=== PATIENT | male | born 1950 | race Caucasian/White ===

== ENCOUNTER 2018-04-24 07:00 | Day surgery (SDC) | payer MEDICARE ==
[~2018-04-24] VITALS: Ht 177.8 cm; Wt 81.0 kg
[~2018-04-24 07:00] MED LIST: ALBU90OI INH; ASPI81CH PO; B Complex #11 EACH PO; CENTRUM SILVER1 EAC4 PO; CHLO25 PO; CITA20 PO; DOXA4 PO; FINA5 PO; FURO20 PO; FURO40 PO; GABA100 PO; GABA300 PO; K-Dur20 MEQ PO; Lasix20 MG PO; Lopressor 50 mg50 MG PO; METO50 PO; OMEPRAZOLE MAGN20 MG PO; THIA100 PO
== END 2018-04-24 09:15 | disposition home or self-care (01) ==
LOC: ORSCSDS 07:00
PROVIDERS: Ophthalmology
PROC: 08RJ3JZ Replacement of Right Lens with Synthetic Substitute, Percutaneous Approach (ICD-10-PCS; principal; 2018-04-24 08:30)
DX: H25.11 Age-related nuclear cataract, right eye (principal); H21.81 Floppy iris syndrome; I10 Essential (primary) hypertension; Z86.73 Personal history of transient ischemic attack (TIA), and cerebral infarction without residual deficits; Z79.82 Long term (current) use of aspirin; Z79.899 Other long term (current) drug therapy; F17.210 Nicotine dependence, cigarettes, uncomplicated
CPT/HCPCS: J2250; J3301; J7040; V2632

== ENCOUNTER 2018-05-22 08:42 | Day surgery (SDC) | payer MEDICARE, OTHER ==
[~2018-05-22] VITALS: Ht 180.3 cm; Wt 82.0 kg
== END 2018-05-22 10:22 | disposition home or self-care (01) ==
LOC: ORSCSDS 08:42
PROVIDERS: Ophthalmology
PROC: 08RK3JZ Replacement of Left Lens with Synthetic Substitute, Percutaneous Approach (ICD-10-PCS; principal; 2018-05-22 10:00)
DX: H25.12 Age-related nuclear cataract, left eye (principal); H21.81 Floppy iris syndrome; I10 Essential (primary) hypertension; G40.89 Other seizures; F17.210 Nicotine dependence, cigarettes, uncomplicated; Z79.82 Long term (current) use of aspirin; Z79.899 Other long term (current) drug therapy
CPT/HCPCS: J2001; J2250; J3010; J3301; J7120; V2632

== ENCOUNTER 2020-02-10 11:16 | Emergency (ER) | payer OTHER ==
[~2020-02-10] VITALS: Ht 177.8 cm; Wt 77.1 kg
[2020-02-10 11:44] LABS: BASOPHILS ABSOLUTE AUTO 0.01 K/mm3 (0.00-0.23); BASOPHILS PERCENT AUTO 0 % (0-2); EOSINOPHILS ABSOLUTE AUTO 0.04 K/mm3 (0.00-0.68); EOSINOPHILS PERCENT AUTO 1 % (0-6); Hematocrit 39.7 % (37.0-53.0); IMMATURE GRAN ABSOLUTE AUTO 0.02 K/mm3 (0.00-0.10); IMMATURE GRAN PERCENT AUTO 1 % (0-1); LYMPHOCYTES ABSOLUTE AUTO 1.36 K/mm3 (0.84-5.20); LYMPHOCYTES PERCENT AUTO 34 % (21-46); MONOCYTES ABSOLUTE AUTO 0.56 K/mm3 (0.16-1.47); MONOCYTES PERCENT AUTO 14 % (4-13); Mean Corpuscular HGB 35.3 pg (26.0-34.0); Mean Corpuscular HGB Conc 35.3 g/dL (31.5-36.5); Mean Corpuscular Volume 100 fL (80-100); Mean Platelet Volume 9.7 fL (9.1-12.4); NEUTROPHILS ABSOLUTE AUTO 2.05 K/mm3 (1.96-9.15); NEUTROPHILS PERCENT AUTO 51 % (41-73); Platelet Count 171 K/mm3 (150-400); RDW Coefficient Variation 12.8 % (11.7-14.2); RDW Standard Deviation 47.8 fL (35.1-46.3); Red Blood Cell Count 3.97 M/mm3 (4.30-5.90); White Blood Cell Count 4.04 K/mm3 (4.00-11.30)
[2020-02-10 12:05] LABS: Alanine Aminotransfer (ALT/SGP 78 U/L (12-78); Albumin, Blood 3.2 g/dL (3.4-5.0); Albumin/Globulin Ratio 0.8 (0.8-1.8); Alk Phos 75 U/L (50-136); Anion Gap 12 mmol/L (6-16); Aspartate Aminotrans (AST/SGOT 73 U/L (12-37); Blood Urea Nitrogen 7 mg/dL (8-24); Bun/Creatinine Ratio 9.3 (12.0-20.0); CO2, Blood 24 mmol/L (21-32); Calcium, Blood 8.7 mg/dL (8.5-10.1); Chloride, Blood 88 mmol/L (98-108); Creatinine, Blood 0.75 mg/dL (0.60-1.20); Globulin, Blood 3.9 g/dL (2.2-4.0); Glomerular Filtration Rate >60 (60-); Glucose, Blood 94 mg/dL (70-99); Potassium, Blood 3.6 mmol/L (3.5-5.5); Sodium, Blood 124 mmol/L (136-145); Total Protein, Blood 7.1 g/dL (6.4-8.2); Troponin I <0.015 ng/mL (0.000-0.040)
== END 2020-02-10 14:00 | disposition home or self-care (01) ==
LOC: ER 11:16
PROVIDERS: Emergency Medicine
DX: R55 Syncope and collapse (principal); E87.1 Hypo-osmolality and hyponatremia; I10 Essential (primary) hypertension; F17.200 Nicotine dependence, unspecified, uncomplicated; Z88.0 Allergy status to penicillin; Z88.2 Allergy status to sulfonamides; Z91.048 Other nonmedicinal substance allergy status; Z79.899 Other long term (current) drug therapy; Z79.82 Long term (current) use of aspirin; Z86.73 Personal history of transient ischemic attack (TIA), and cerebral infarction without residual deficits
CPT/HCPCS: 36415; 71046; 80053; 84484; 85025; 93005; 93010; 96360; 99284-25; J7030

== ENCOUNTER 2020-08-11 23:19 | Emergency (ER) | payer OTHER ==
[~2020-08-11] VITALS: Ht 177.8 cm; Wt 67.6 kg
[~2020-08-11 23:19] MED LIST changes: +BENADRYL25 MG PO
[2020-08-11 23:54] LABS: BASOPHILS ABSOLUTE AUTO 0.02 K/mm3 (0.00-0.23); BASOPHILS PERCENT AUTO 1 % (0-2); EOSINOPHILS ABSOLUTE AUTO 0.02 K/mm3 (0.00-0.68); EOSINOPHILS PERCENT AUTO 1 % (0-6); Hematocrit 36.6 % (37.0-53.0); Hemoglobin 12.6 g/dL (13.5-17.5); IMMATURE GRAN ABSOLUTE AUTO 0.02 K/mm3 (0.00-0.10); IMMATURE GRAN PERCENT AUTO 1 % (0-1); LYMPHOCYTES ABSOLUTE AUTO 1.63 K/mm3 (0.84-5.20); LYMPHOCYTES PERCENT AUTO 40 % (21-46); MONOCYTES ABSOLUTE AUTO 0.57 K/mm3 (0.16-1.47); MONOCYTES PERCENT AUTO 14 % (4-13); Mean Corpuscular HGB 35.7 pg (26.0-34.0); Mean Corpuscular HGB Conc 34.4 g/dL (31.5-36.5); Mean Corpuscular Volume 104 fL (80-100); NEUTROPHILS ABSOLUTE AUTO 1.83 K/mm3 (1.96-9.15); NEUTROPHILS PERCENT AUTO 45 % (41-73); Platelet Count 172 K/mm3 (150-400); RDW Coefficient Variation 12.6 % (11.7-14.2); RDW Standard Deviation 48.3 fL (35.1-46.3); Red Blood Cell Count 3.53 M/mm3 (4.30-5.90); White Blood Cell Count 4.09 K/mm3 (4.00-11.30)
[2020-08-12 00:12] LABS: Alanine Aminotransfer (ALT/SGP 60 U/L (12-78); Albumin/Globulin Ratio 0.8 (0.8-1.8); Alk Phos 84 U/L (50-136); Anion Gap 7 mmol/L (6-16); Aspartate Aminotrans (AST/SGOT 92 U/L (12-37); Bilirubin, Total 0.4 mg/dL (0.1-1.0); Blood Urea Nitrogen 7 mg/dL (8-24); Bun/Creatinine Ratio 14.5 (12.0-20.0); CO2, Blood 28 mmol/L (21-32); Calcium, Blood 8.4 mg/dL (8.5-10.1); Chloride, Blood 96 mmol/L (98-108); Creatinine, Blood 0.48 mg/dL (0.60-1.20); Globulin, Blood 3.7 g/dL (2.2-4.0); Glomerular Filtration Rate >60 (60-); Glucose, Blood 83 mg/dL (70-99); Magnesium, Blood 1.8 mg/dL (1.6-2.4); Sodium, Blood 131 mmol/L (136-145); Total Protein, Blood 6.7 g/dL (6.4-8.2)
== END 2020-08-12 01:46 | disposition home or self-care (01) ==
LOC: ER 23:19
PROVIDERS: Emergency Medicine
DX: S00.31XA Abrasion of nose, initial encounter (principal); S00.81XA Abrasion of other part of head, initial encounter; I10 Essential (primary) hypertension; F17.210 Nicotine dependence, cigarettes, uncomplicated; Z86.73 Personal history of transient ischemic attack (TIA), and cerebral infarction without residual deficits; Z88.2 Allergy status to sulfonamides; Z88.0 Allergy status to penicillin; Z91.09 Other allergy status, other than to drugs and biological substances; Z23 Encounter for immunization; W01.10XA Fall on same level from slipping, tripping and stumbling with subsequent striking against unspecified object, initial encounter
CPT/HCPCS: 36415; 70450; 71045; 72125; 80053; 83735; 85025; 90471; 90714; 93005; 93010; 94640; 99285-25; A9270-GY

== ENCOUNTER 2020-09-21 18:58 | Emergency (ER) | payer OTHER ==
[~2020-09-21] VITALS: Ht 180.3 cm; Wt 72.6 kg
[2020-09-21 20:35] LABS: BASOPHILS ABSOLUTE AUTO 0.03 K/mm3 (0.00-0.23); BASOPHILS PERCENT AUTO 1 % (0-2); EOSINOPHILS ABSOLUTE AUTO 0.03 K/mm3 (0.00-0.68); EOSINOPHILS PERCENT AUTO 1 % (0-6); Hematocrit 37.7 % (37.0-53.0); Hemoglobin 12.9 g/dL (13.5-17.5); IMMATURE GRAN ABSOLUTE AUTO 0.04 K/mm3 (0.00-0.10); IMMATURE GRAN PERCENT AUTO 1 % (0-1); LYMPHOCYTES ABSOLUTE AUTO 1.22 K/mm3 (0.84-5.20); LYMPHOCYTES PERCENT AUTO 31 % (21-46); MONOCYTES PERCENT AUTO 15 % (4-13); Mean Corpuscular HGB 36.2 pg (26.0-34.0); Mean Corpuscular HGB Conc 34.2 g/dL (31.5-36.5); Mean Corpuscular Volume 106 fL (80-100); Mean Platelet Volume 8.9 fL (9.1-12.4); NEUTROPHILS ABSOLUTE AUTO 2.03 K/mm3 (1.96-9.15); NEUTROPHILS PERCENT AUTO 51 % (41-73); Platelet Count 186 K/mm3 (150-400); RDW Coefficient Variation 13.1 % (11.7-14.2); RDW Standard Deviation 51.7 fL (35.1-46.3); Red Blood Cell Count 3.56 M/mm3 (4.30-5.90); White Blood Cell Count 3.95 K/mm3 (4.00-11.30)
[2020-09-21 20:50] LABS: Alanine Aminotransfer (ALT/SGP 48 U/L (12-78); Albumin, Blood 3.1 g/dL (3.4-5.0); Albumin/Globulin Ratio 0.8 (0.8-1.8); Alk Phos 105 U/L (50-136); Anion Gap 8 mmol/L (6-16); Aspartate Aminotrans (AST/SGOT 63 U/L (12-37); Bilirubin, Total 0.3 mg/dL (0.1-1.0); Blood Urea Nitrogen 7 mg/dL (8-24); Bun/Creatinine Ratio 18.3 (12.0-20.0); CO2, Blood 30 mmol/L (21-32); Calcium, Blood 8.8 mg/dL (8.5-10.1); Chloride, Blood 95 mmol/L (98-108); Creatinine, Blood 0.38 mg/dL (0.60-1.20); Globulin, Blood 3.7 g/dL (2.2-4.0); Glomerular Filtration Rate >60 (60-); Glucose, Blood 83 mg/dL (70-99); Potassium, Blood 4.3 mmol/L (3.5-5.5); Sodium, Blood 133 mmol/L (136-145); Total Protein, Blood 6.8 g/dL (6.4-8.2)
[2020-09-21 20:52] LABS: Ethanol (Alcohol), Blood, Med 381 mg/dL
== END 2020-09-21 23:44 | disposition home or self-care (01) ==
LOC: ER 18:58
PROVIDERS: Student in an Organized Health Care Education/Training Program
DX: S05.10XA Contusion of eyeball and orbital tissues, unspecified eye, initial encounter (principal); F10.129 Alcohol abuse with intoxication, unspecified; Z88.0 Allergy status to penicillin; Z88.2 Allergy status to sulfonamides; Z91.09 Other allergy status, other than to drugs and biological substances; Z79.82 Long term (current) use of aspirin; Z79.899 Other long term (current) drug therapy; Z86.73 Personal history of transient ischemic attack (TIA), and cerebral infarction without residual deficits; I10 Essential (primary) hypertension; F17.210 Nicotine dependence, cigarettes, uncomplicated; W01.10XA Fall on same level from slipping, tripping and stumbling with subsequent striking against unspecified object, initial encounter; Y90.8 Blood alcohol level of 240 mg/100 ml or more
CPT/HCPCS: 70450; 71045; 80053; 85025; 93005; 93010; 99285-25; G0480

== ENCOUNTER → 2020-10-13 | Outpatient (CLI) | payer OTHER ==
[2020-10-13 10:11] LABS: Source, Urine Voided
[2020-10-13 13:27] LABS: Appearance, Urine Clear (Clear); Bilirubin, Urine Neg (Neg); Blood, Urine Neg (Neg); Color, Urine Yellow (P-Yellow); Glucose Qualitative, Urine Neg (Neg); Ketones, Urine Neg (Neg); Leukocyte Esterase, Urine Neg (Neg); Nitrite, Urine Neg (Neg); Protein, Urine Neg (Neg); Urobilinogen, Urine NORM (Normal); pH, Urine 6.5 (5.0-8.0)
== END | disposition home or self-care (01) ==
LOC: LAB SHORT 05:45 → LAB 05:45
PROVIDERS: Family Medicine
DX: E87.1 Hypo-osmolality and hyponatremia (principal); R74.8 Abnormal levels of other serum enzymes
CPT/HCPCS: 81003; 83935

== ENCOUNTER 2021-04-19 22:46 | Inpatient (IN) | payer OTHER, MEDICARE ==
[~2021-04-19] VITALS: Ht 180.3 cm; Wt 74.0 kg
[~2021-04-19 22:46] MED LIST changes: -B Complex #11 EACH PO; -CENTRUM SILVER1 EAC4 PO; +MULTIPLE VITAM1 EACH PO; +Vitamin B Comple1 EA PO
[2021-04-19 23:29] LABS: BASOPHILS ABSOLUTE AUTO 0.01 K/mm3 (0.00-0.23); BASOPHILS PERCENT AUTO 0 % (0-2); EOSINOPHILS ABSOLUTE AUTO 0.04 K/mm3 (0.00-0.68); EOSINOPHILS PERCENT AUTO 1 % (0-6); Hematocrit 30.9 % (37.0-53.0); Hemoglobin 11.4 g/dL (13.5-17.5); IMMATURE GRAN ABSOLUTE AUTO 0.02 K/mm3 (0.00-0.10); IMMATURE GRAN PERCENT AUTO 1 % (0-1); LYMPHOCYTES ABSOLUTE AUTO 1.04 K/mm3 (0.84-5.20); LYMPHOCYTES PERCENT AUTO 24 % (21-46); MONOCYTES ABSOLUTE AUTO 0.46 K/mm3 (0.16-1.47); MONOCYTES PERCENT AUTO 11 % (4-13); Mean Corpuscular HGB 35.1 pg (26.0-34.0); Mean Corpuscular HGB Conc 36.9 g/dL (31.5-36.5); Mean Corpuscular Volume 95 fL (80-100); Mean Platelet Volume 9.2 fL (9.1-12.4); NEUTROPHILS ABSOLUTE AUTO 2.78 K/mm3 (1.96-9.15); NEUTROPHILS PERCENT AUTO 64 % (41-73); Platelet Count 195 K/mm3 (150-400); RDW Coefficient Variation 11.9 % (11.7-14.2); RDW Standard Deviation 41.7 fL (35.1-46.3); Red Blood Cell Count 3.25 M/mm3 (4.30-5.90); White Blood Cell Count 4.35 K/mm3 (4.00-11.30)
[2021-04-19 23:40] LABS: Ethanol (Alcohol), Blood, Med 176 mg/dL; Magnesium, Blood 1.6 mg/dL (1.6-2.4)
[2021-04-19 23:42] LABS: Alanine Aminotransfer (ALT/SGP 42 U/L (12-78); Albumin, Blood 3.1 g/dL (3.4-5.0); Albumin/Globulin Ratio 0.9 (0.8-1.8); Alk Phos 81 U/L (50-136); Anion Gap 13 mmol/L (6-16); Aspartate Aminotrans (AST/SGOT 33 U/L (12-37); Bilirubin, Total 0.5 mg/dL (0.1-1.0); Blood Urea Nitrogen 7 mg/dL (8-24); Bun/Creatinine Ratio 11.6 (12.0-20.0); CO2, Blood 20 mmol/L (21-32); Calcium, Blood 8.7 mg/dL (8.5-10.1); Chloride, Blood 85 mmol/L (98-108); Globulin, Blood 3.4 g/dL (2.2-4.0); Glomerular Filtration Rate >60 (60-); Glucose, Blood 68 mg/dL (70-99); Potassium, Blood 5.1 mmol/L (3.5-5.5); Sodium, Blood 118 mmol/L (136-145); Total Protein, Blood 6.5 g/dL (6.4-8.2)
--- NOTE | 2021-04-20 04:29 | NUR ---
ADMISSION NOTE 70 YR OLD MALE ADMITTED TO FLOOR FROM THE ED WITH DX OF HYPONATREMIA, NA+ LEVEL OF 118. IVF OF NS INFUSING. ALERT AND ORIENTED X 4. VOICED HX OF ETOH. LAST DRINK WAS TODAY. NO NOTED TREMORS. ORIENTED TO USE OF CALL LIGHT. AGREED NOT TO GET OUT OF BED AND WOULD USE CALL LIGHT IF NEEDED.
[2021-04-20] MEDS ORDERED: METO50 PO (04:30)
[2021-04-20] MEDS ORDERED: TAMS.4ER PO (04:31)
[2021-04-20] MEDS ORDERED: B-1100 MG PO (04:31)
--- NOTE | 2021-04-20 04:36 | NUR ---
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 IVF INFUSING. CALL LIGHT NI REACH.
[2021-04-20 05:49] LABS: Alanine Aminotransfer (ALT/SGP 39 U/L (12-78); Albumin/Globulin Ratio 0.9 (0.8-1.8); Alk Phos 76 U/L (50-136); Anion Gap 11 mmol/L (6-16); Aspartate Aminotrans (AST/SGOT 36 U/L (12-37); Bilirubin, Direct 0.3 mg/dL (0.0-0.3); Bilirubin, Indirect 0.3 mg/dL (0.1-0.7); Bilirubin, Total 0.6 mg/dL (0.1-1.0); Blood Urea Nitrogen 6 mg/dL (8-24); Bun/Creatinine Ratio 11.3 (12.0-20.0); CO2, Blood 22 mmol/L (21-32); Calcium, Blood 8.9 mg/dL (8.5-10.1); Chloride, Blood 90 mmol/L (98-108); Creatinine, Blood 0.53 mg/dL (0.60-1.20); Globulin, Blood 3.2 g/dL (2.2-4.0); Glomerular Filtration Rate >60 (60-); Glucose, Blood 57 mg/dL (70-99); Potassium, Blood 4.5 mmol/L (3.5-5.5); Sodium, Blood 123 mmol/L (136-145); Total Protein, Blood 6.2 g/dL (6.4-8.2)
[2021-04-20 08:52] LABS: Percent Saturation 52.7 % (20.0-50.0)
[2021-04-20 09:24] LABS: Thyroid Stimulating Hormone 3.37 uIU/mL (0.360-4.800)
[2021-04-20 11:26] LABS: Adenovirus Not Detected (NOT DETECT); Coronavirus 229E Not Detected (NOT DETECT); Coronavirus HKU1 Not Detected (NOT DETECT); Coronavirus NL63 Not Detected (NOT DETECT); Coronavirus OC43 Not Detected (NOT DETECT); Human Metapneumovirus Not Detected (NOT DETECT); Human Rhinovirus/Enterovirus Not Detected (NOT DETECT); SARS-Cov-2 (COVID-19), BioFire Not Detected (NOT DETECT)
[2021-04-20 11:27] LABS: Bordetella pertussis Not Detected (NOT DETECT); Chlamydophila pneumoniae Not Detected (NOT DETECT); Influenza A/2009-H1 Not Detected (NOT DETECT); Influenza A/H1 Not Detected (NOT DETECT); Influenza A/H3 Not Detected (NOT DETECT); Influenza B Not Detected (NOT DETECT); Mycoplasma pneumoniae Not Detected (NOT DETECT); Parainfluenza Virus 1 Not Detected (NOT DETECT); Parainfluenza Virus 2 Not Detected (NOT DETECT); Parainfluenza Virus 3 Not Detected (NOT DETECT); Parainfluenza Virus 4 Not Detected (NOT DETECT); Respiratory Syncytial Virus Not Detected (NOT DETECT)
[2021-04-20 14:30] LABS: Anion Gap 7 mmol/L (6-16); Blood Urea Nitrogen 8 mg/dL (8-24); Bun/Creatinine Ratio 12.4 (12.0-20.0); CO2, Blood 25 mmol/L (21-32); Chloride, Blood 95 mmol/L (98-108); Creatinine, Blood 0.64 mg/dL (0.60-1.20); Glomerular Filtration Rate >60 (60-); Glucose, Blood 98 mg/dL (70-99); Potassium, Blood 4.7 mmol/L (3.5-5.5); Sodium, Blood 127 mmol/L (136-145)
--- NOTE | 2021-04-20 18:16 | NUR ---
SHIFT SUMMARY PT A/O X4. HX OF ETOH BUT CIWAS HAVE BEEN NEGATIVE. PT WORKED WITH PHYSICAL THERAPY AND IS VERY WEAK. HE WAS UNABLE TO STAND BUT REPORTS THAT HE IS ABLE TO WALK AT HOME USING A WALKER. HOWEVER, HE ALSO REPORTS THAT HE FALLS OFTEN. INCONT AND REQUESTED TO HAVE A CONDOM CATH. SKIN ON BUTTOCKS AND GROIN IS RED. VSS. WILL REPORT TO ONCOMING RN.
[2021-04-20 20:27] LABS: Anion Gap 8 mmol/L (6-16); Blood Urea Nitrogen 9 mg/dL (8-24); Bun/Creatinine Ratio 12.3 (12.0-20.0); CO2, Blood 26 mmol/L (21-32); Calcium, Blood 8.7 mg/dL (8.5-10.1); Chloride, Blood 94 mmol/L (98-108); Creatinine, Blood 0.73 mg/dL (0.60-1.20); Glomerular Filtration Rate >60 (60-); Glucose, Blood 125 mg/dL (70-99); Potassium, Blood 4.5 mmol/L (3.5-5.5); Sodium, Blood 128 mmol/L (136-145)
--- NOTE | 2021-04-21 00:14 | NUR ---
CIWA 8, 20MG LIBRIUM GIVEN PO, NICOTINE PATCH REPLACED D/T PRIOR PATCH HAD FALLEN OFF. PT APPEARS LESS AGITATED. CALL LT IN REACH.
--- NOTE | 2021-04-21 03:00 | NUR ---
PT COMFORTABLE AT THIS TIME. NO NEEDS. CALL LT IN REACH.
--- NOTE | 2021-04-21 04:01 | NUR ---
SHIFT SUMMARY: A/O. STATES NEEDS APPROPRIATELY. ON RA. SR 96 ON TELE. INCONTINENT OF BOWEL AND URINE. HX OF ETOH, CIWA 8, LIBRIUM 20MG PO GIVEN. PT WAS ABLE TO RELAX SOME, LESS AGITATED. REPLACED NICOTINE PATCH THAT HAD FALLEN OFF DURING DAYSHIFT. NO ACUTE CHANGES. WILL CONTINUE TO PROVIDE CARE UNTIL SHIFT REPORT.
--- NOTE | 2021-04-21 04:53 | NUR ---
CONDOM CATH PLACED PER PT REQUEST.
[2021-04-21 06:10] LABS: BASOPHILS ABSOLUTE AUTO 0.01 K/mm3 (0.00-0.23); BASOPHILS PERCENT AUTO 0 % (0-2); EOSINOPHILS ABSOLUTE AUTO 0.07 K/mm3 (0.00-0.68); EOSINOPHILS PERCENT AUTO 2 % (0-6); Hematocrit 32.6 % (37.0-53.0); Hemoglobin 11.6 g/dL (13.5-17.5); IMMATURE GRAN ABSOLUTE AUTO 0.02 K/mm3 (0.00-0.10); IMMATURE GRAN PERCENT AUTO 1 % (0-1); LYMPHOCYTES ABSOLUTE AUTO 0.62 K/mm3 (0.84-5.20); LYMPHOCYTES PERCENT AUTO 15 % (21-46); MONOCYTES ABSOLUTE AUTO 0.45 K/mm3 (0.16-1.47); MONOCYTES PERCENT AUTO 11 % (4-13); Mean Corpuscular HGB 34.7 pg (26.0-34.0); Mean Corpuscular HGB Conc 35.6 g/dL (31.5-36.5); Mean Corpuscular Volume 98 fL (80-100); Mean Platelet Volume 9.9 fL (9.1-12.4); NEUTROPHILS ABSOLUTE AUTO 2.86 K/mm3 (1.96-9.15); NEUTROPHILS PERCENT AUTO 71 % (41-73); Platelet Count 192 K/mm3 (150-400); RDW Coefficient Variation 12.4 % (11.7-14.2); RDW Standard Deviation 44.9 fL (35.1-46.3); Red Blood Cell Count 3.34 M/mm3 (4.30-5.90); White Blood Cell Count 4.03 K/mm3 (4.00-11.30)
[2021-04-21 06:30] LABS: Albumin, Blood 2.8 g/dL (3.4-5.0); Anion Gap 7 mmol/L (6-16); Blood Urea Nitrogen 7 mg/dL (8-24); Bun/Creatinine Ratio 11.3 (12.0-20.0); CO2, Blood 26 mmol/L (21-32); Calcium, Blood 8.7 mg/dL (8.5-10.1); Chloride, Blood 95 mmol/L (98-108); Creatinine, Blood 0.62 mg/dL (0.60-1.20); Glomerular Filtration Rate >60 (60-); Glucose, Blood 88 mg/dL (70-99); Phosphorus, Blood 2.8 mg/dL (2.5-4.9); Sodium, Blood 128 mmol/L (136-145)
[2021-04-21 08:24] LABS: Anion Gap 7 mmol/L (6-16); Blood Urea Nitrogen 6 mg/dL (8-24); Bun/Creatinine Ratio 10.8 (12.0-20.0); CO2, Blood 27 mmol/L (21-32); Calcium, Blood 9.1 mg/dL (8.5-10.1); Chloride, Blood 95 mmol/L (98-108); Creatinine, Blood 0.56 mg/dL (0.60-1.20); Glomerular Filtration Rate >60 (60-); Glucose, Blood 92 mg/dL (70-99); Sodium, Blood 129 mmol/L (136-145)
[2021-04-21 13:01] LABS: Anion Gap 7 mmol/L (6-16); Blood Urea Nitrogen 11 mg/dL (8-24); Bun/Creatinine Ratio 22.9 (12.0-20.0); CO2, Blood 27 mmol/L (21-32); Calcium, Blood 9.2 mg/dL (8.5-10.1); Chloride, Blood 96 mmol/L (98-108); Creatinine, Blood 0.48 mg/dL (0.60-1.20); Glomerular Filtration Rate >60 (60-); Glucose, Blood 119 mg/dL (70-99); Potassium, Blood 4.2 mmol/L (3.5-5.5); Sodium, Blood 130 mmol/L (136-145)
--- NOTE | 2021-04-21 14:30 | NUR ---
AWARE 3 DIARRHEAS. IMODUIM CHANGED TO Q4 HR PRN AND IV BOLUS FOR 1000ML.
--- NOTE | 2021-04-21 14:53 | NUR ---
ORTHOSTATIC LYING 114/65-117. SITTING 91/58-127. NOTIFIED. CONTINUE WITH BOLUS THEN D5NS AT 125
--- NOTE | 2021-04-21 18:02 | NUR ---
ALERT. ORIENTED. ORTHOSTATIC W/ AWARE. HAD BOLUS AND NOW FLUID GOING INAT 125ML/HR. BUTTOCK EXCORIATED. USING CALAZINE TO AREA. PATIENT UNABLE TO STAND FOR P.T. ALSO ORTHOSTATIC. POOR APPETITE. TELE ON. WCTM
[2021-04-21 20:28] LABS: C DIFFICILE DNA NEGATIVE (Negative)
--- NOTE | 2021-04-22 01:48 | NUR ---
REPORT GIVEN TO SHERWIN JACOBSON. PATIENT IS ALERT AND ORIENTED. HE IS ABLE TO MAKE HIS NEEDS KNOWN. HE USES HIS CALL LIGHT FREQUENTLY. MEDICATED WITH LIBRIUM 20MG PER ORDERS, CIWA 7. PATIENT HAS NOT RESTED MUCH THIS SHIFT. HE STATES THAT HE WOULD LIKE TO GO HOME SOON POSSIBLE. BED LOW AND LOCKED, CALL LIGHT WITHIN REACH. BED ALARM SET.
--- NOTE | 2021-04-22 01:59 | NUR ---
ASSUMED CARE OF PT FROM KAVON GAGE. PT LYING IN BED WATCHING TV. RESP E/U ON RA. CALL LT IN REACH.
--- NOTE | 2021-04-22 04:30 | NUR ---
SHIFT SUMMARY: A/O. STATES NEEDS APPROPRIATELY. RESP E/U ON RA. MULTIPLE SCATTERED SCABS ON BLE FROM CRAWLING ON THE FLOOR OF HIS HOME AFTER A FALL. SINUS AT 72 ON TELE. HX ETOH, CIWA 7. GIVEN 20MG LIBRIUM EARLIER FOR SEVERE AGITATION. ON CONT IVF. NEG FOR C-DIFF. PLAN FOR SNF OR HOME WITH HH. WILL CONTINUE TO PROVIDE CARE UNTIL SHIFT REPORT.
[2021-04-22 06:11] LABS: Albumin, Blood 2.3 g/dL (3.4-5.0); Anion Gap 4 mmol/L (6-16); Blood Urea Nitrogen 10 mg/dL (8-24); Bun/Creatinine Ratio 20.7 (12.0-20.0); CO2, Blood 27 mmol/L (21-32); Calcium, Blood 8.3 mg/dL (8.5-10.1); Chloride, Blood 105 mmol/L (98-108); Creatinine, Blood 0.48 mg/dL (0.60-1.20); Glomerular Filtration Rate >60 (60-); Glucose, Blood 99 mg/dL (70-99); Magnesium, Blood 1.5 mg/dL (1.6-2.4); Phosphorus, Blood 1.1 mg/dL (2.5-4.9); Potassium, Blood 3.7 mmol/L (3.5-5.5); Sodium, Blood 136 mmol/L (136-145)
--- NOTE | 2021-04-22 17:44 | NUR ---
PT WITH ONE SOFT STOOL THIS AM, PT REQUIRED 2 PERSON ASSIST TO AND FROM BSC. PT IS ALERT, IRRATIONAL AT TIMES, PT STS THAT HE PLANS TO LEAVE BEFORE SUNDAY DESPITE PLANNED TRANSFER TO SNF PERHAPS ON SUNDAY. PT IS WELL EDUCATED BAOUT WHY HE WAS NOT D/C TODAY, THAT HE IS NOT STRONG ENOUGH TO PROVIDE HIS OWN CARE AND THAT HE HAD A POSITIVE ORTHO BP, PT STS "I CAN'T DO IT THAT LONG" PER'S REPORTED CAREGIVERS WERE UNABLE TO BE REACHED TODAY DESPITE NUMEROUS CALLS FROM CARE MANAGEMENT
--- NOTE | 2021-04-23 05:25 | NUR ---
SHIFT SUMMARY- PT. AWAKE MOST OF THE NIGHT. SLEEP AID GIVEN PER PT. REQUEST WITH MINIMAL EFFECT. ON BEDREST LAST NIGHT, HAD NO COMPLAINTS OF PAIN OR DISCOMFORT T/O THE NIGHT. CONDOM CATH CHANGED MULTIPLE TIMES DURING THE NIGHT, PT. VOIDS FREQUENT AND LARGE AMOUNTS. CIWA SCORE OF 4, VSS. CALL LIGHT WITHIN REACH AND SIDE RAILS UPX2. WILL CONT TO MONITOR.
--- NOTE | 2021-04-23 18:03 | NUR ---
SHIFT SUMMARY PT A&O PLEASENT AND COOPERATIVE. OOB WITH 1 ASSIST. PT SAT EOB FOR MEALS. NO COMPLIANTS THIS SHIFT. PT WAS ORTHOSTATIC WITH AM ORTHO BP CHECK. NO ACUTE CHANGES THIS SHIFT. PLAN: CHECK ORHTO VS TOMORROW, POSSIBLE DISCHARGE HOME IF STABLE.
[2021-04-24 05:39] LABS: Albumin, Blood 2.2 g/dL (3.4-5.0); Anion Gap 5 mmol/L (6-16); Blood Urea Nitrogen 8 mg/dL (8-24); Bun/Creatinine Ratio 17.9 (12.0-20.0); CO2, Blood 30 mmol/L (21-32); Calcium, Blood 7.5 mg/dL (8.5-10.1); Chloride, Blood 102 mmol/L (98-108); Creatinine, Blood 0.45 mg/dL (0.60-1.20); Glomerular Filtration Rate >60 (60-); Glucose, Blood 89 mg/dL (70-99); Magnesium, Blood 1.2 mg/dL (1.6-2.4); Phosphorus, Blood 1.4 mg/dL (2.5-4.9); Sodium, Blood 137 mmol/L (136-145)
--- NOTE | 2021-04-24 05:43 | NUR ---
Quiet night, slept off and on, requests door kept open and lights on all night.
--- NOTE | 2021-04-24 18:41 | NUR ---
SHIFT SUMMARY PT A&0X3. UP SBA WITH FWW TO [facility] A COUPLE OF TIMES TODAY. PT REMAINS HYPOTENSIVE WITH ORTHOSTATIC VS THIS AM. NO C/0 THIS SHIFT. NO ACUTE CHANGES. PTS FRIEND JHON CAME INTO VISIT TODAY WITH CONCERNS ABOUT PT GOING HOME ALONE, ALSO THAT HIS HOUSE IS IN VERY POOR REPAIR. AFTER TALKING WITH PT AND JHON PT IS AGREEABLE TO POSSIBLE SNF PLACEMENT. SPOKE WITH DR JENKINS- [facility] CONSULT ORDERED. ENCOURAGED PT TO SET SMALL GOALS TO HELP IMPROVE STRENGTH AND ACTIVITY LEVEL EACH DAY.
--- NOTE | 2021-04-25 06:10 | NUR ---
SHIFT SUMMARY: PT IS ALERT AND ORIENTED. PT IS CALM AND COOPERATIVE WITH CARE. PT CALL APPROPRIATELY. PT IS A ONE ASSIST WITH FWW. PT REPORTS NAUSEA, GAVE PRN ZOFRAN. PT DENIES PAIN, VOMITING, AND SOB. PT'S IV LEAKING, REFUSED ANOTHER TO BE STARTED HE BELIEVES HE IS GOING HOME TODAY. PT SLEPT INTERMITTENTLY THROUGHOUT THE NIGHT. NO ACUTE CHANGES OR COMPLICATIONS THIS SHIFT. WILL CONTINUE TO MONITOR.
[2021-04-25] MEDS ORDERED: FLUDROCORTISON0.1 M1 PO (12:44)
== END 2021-04-25 15:50 | disposition home health service (06) | DRG 640 ==
LOC: ER 22:46 → MEDS 04-20 01:48
PROVIDERS: Emergency Medicine; Family Medicine; Internal Medicine; ADMIT Internal Medicine
DX: E87.1 Hypo-osmolality and hyponatremia (principal); J96.01 Acute respiratory failure with hypoxia; E44.0 Moderate protein-calorie malnutrition; I95.1 Orthostatic hypotension; Z66 Do not resuscitate; E87.6 Hypokalemia; E83.39 Other disorders of phosphorus metabolism; F17.210 Nicotine dependence, cigarettes, uncomplicated; J44.9 Chronic obstructive pulmonary disease, unspecified; Z86.73 Personal history of transient ischemic attack (TIA), and cerebral infarction without residual deficits; N40.0 Benign prostatic hyperplasia without lower urinary tract symptoms; I10 Essential (primary) hypertension; Z90.49 Acquired absence of other specified parts of digestive tract; Z98.890 Other specified postprocedural states; Z88.2 Allergy status to sulfonamides; Z88.0 Allergy status to penicillin; Z88.8 Allergy status to other drugs, medicaments and biological substances; Z79.82 Long term (current) use of aspirin; Z79.899 Other long term (current) drug therapy; E83.42 Hypomagnesemia; Z68.22 Body mass index [BMI] 22.0-22.9, adult; F10.229 Alcohol dependence with intoxication, unspecified
CPT/HCPCS: 0202U; 36415; 71046; 80048; 80053; 80069; 80076; 82607; 82728; 82746; 83540; 83550; 83735; 84443; 85025; 87493; 91303; 93005; 93010; 94762; 97110; 97116; 97162; 97530; 99285-25; A9270; G0480; J1650; J2405; J3475; J7030; J7042; J7060

== ENCOUNTER 2021-05-04 15:30 | Emergency (ER) | payer OTHER ==
[~2021-05-04] VITALS: Ht 177.8 cm; Wt 68.0 kg
[~2021-05-04 15:30] MED LIST changes: +B-1100 MG PO; +FLUDROCORTISON0.1 M1 PO; +TAMS.4ER PO
[2021-05-04 16:20] LABS: Hematocrit 30.6 % (37.0-53.0); Hemoglobin 10.5 g/dL (13.5-17.5); Mean Corpuscular HGB 34.2 pg (26.0-34.0); Mean Corpuscular HGB Conc 34.3 g/dL (31.5-36.5); Mean Corpuscular Volume 100 fL (80-100); Mean Platelet Volume 9.5 fL (9.1-12.4); Platelet Count 316 K/mm3 (150-400); RDW Standard Deviation 47.3 fL (35.1-46.3); Red Blood Cell Count 3.07 M/mm3 (4.30-5.90); White Blood Cell Count 3.45 K/mm3 (4.00-11.30)
[2021-05-04 16:51] LABS: BAND PERCENT MAN 1 % (0-8); BASOPHILS PERCENT MAN 0 % (0-2); EOSINOPHILS ABSOLUTE MAN 0.03 K/mm3 (0.00-0.68); EOSINOPHILS PERCENT MAN 1 % (0-6); LYMPHOCYTES % ATYPICAL MANUAL 2 % (0-0); LYMPHOCYTES ABSOLUTE MAN 0.86 K/mm3 (0.84-5.20); LYMPHOCYTES PERCENT MAN 23 % (21-46); MONOCYTES ABSOLUTE MAN 0.31 K/mm3 (0.16-1.47); MONOCYTES PERCENT MAN 9 % (4-13); NEUTROPHILS ABSOLUTE MAN 2.24 K/mm3 (1.96-9.15); SEG NEUTROPHILS PERCENT MAN 64 % (41-73); TOTAL CELLS COUNTED 100
[2021-05-04 16:52] LABS: Alanine Aminotransfer (ALT/SGP 28 U/L (12-78); Albumin, Blood 2.3 g/dL (3.4-5.0); Albumin/Globulin Ratio 0.6 (0.8-1.8); Alk Phos 48 U/L (50-136); Anion Gap 6 mmol/L (6-16); Aspartate Aminotrans (AST/SGOT 26 U/L (12-37); Bilirubin, Total 0.4 mg/dL (0.1-1.0); Blood Urea Nitrogen 13 mg/dL (8-24); Bun/Creatinine Ratio 25.5 (12.0-20.0); CO2, Blood 36 mmol/L (21-32); Calcium, Blood 8.9 mg/dL (8.5-10.1); Chloride, Blood 95 mmol/L (98-108); Creatinine, Blood 0.51 mg/dL (0.60-1.20); Glomerular Filtration Rate >60 (60-); Glucose, Blood 122 mg/dL (70-99); Potassium, Blood 2.9 mmol/L (3.5-5.5); Sodium, Blood 137 mmol/L (136-145); Total Protein, Blood 6.3 g/dL (6.4-8.2)
[2021-05-04 16:59] LABS: Magnesium, Blood 1.3 mg/dL (1.6-2.4)
[2021-05-04] MEDS ORDERED: FUROSEMIDE20 MG PO (17:37)
[2021-05-04] MEDS ORDERED: Ventolin/Prove6.7 GM INH (17:37)
[2021-05-04] MEDS ORDERED: TAMSULOSIN HCL0.4 M1 PO (17:38)
[2021-05-04] MEDS ORDERED: MAGNESIUM OXID500 MG PO (17:40)
== END 2021-05-04 20:29 | disposition home or self-care (01) ==
LOC: ER 15:30
PROVIDERS: Physician Assistant
DX: U07.1 COVID-19 (principal); E87.6 Hypokalemia; E83.42 Hypomagnesemia; I10 Essential (primary) hypertension; F17.210 Nicotine dependence, cigarettes, uncomplicated; Z88.0 Allergy status to penicillin; Z88.2 Allergy status to sulfonamides; Z91.048 Other nonmedicinal substance allergy status; Z79.899 Other long term (current) drug therapy; Z86.73 Personal history of transient ischemic attack (TIA), and cerebral infarction without residual deficits
CPT/HCPCS: 36415; 71046; 80053; 83690; 83735; 83880; 84100; 84484; 85025; 93005; 93010; 99284-25; A9270

== ENCOUNTER → 2021-10-17 | Outpatient (CLI) | payer OTHER ==
[~2021-10-17] MED LIST changes: +FUROSEMIDE20 MG PO; +MAGNESIUM OXID500 MG PO; +TAMSULOSIN HCL0.4 M1 PO; +Ventolin/Prove6.7 GM INH
== END | disposition home or self-care (01) ==
LOC: LAB SHORT 07:57
DX: B35.1 Tinea unguium (principal)
CPT/HCPCS: 88305; 88312

== ENCOUNTER → 2023-07-11 | Outpatient (CLI) | payer OTHER | LOC: LAB 12:41 → LAB SHORT 12:41 | DX: L60.2 Onychogryphosis (principal) | CPT/HCPCS: 88305; 88312 ==

== ENCOUNTER 2023-10-11 07:00 | Day surgery (SDC) | payer OTHER ==
[~2023-10-11] VITALS: Ht 177.8 cm; Wt 68.0 kg
[2023-10-11] MEDS ORDERED: ATOR80 PO (07:20)
[2023-10-11] MEDS ORDERED: IBUP200 PO (07:21)
[2023-10-11] MEDS ORDERED: Neurontin300 MG PO (07:21)
[2023-10-11] MEDS ORDERED: METO50ER PO (07:24)
[2023-10-11 07:27] VITALS: BP 144/80
[2023-10-11 07:45] VITALS: BP 139/75
[2023-10-11] MEDS ORDERED: NS 500 ML IV ONE (08:10)
[2023-10-11] MEDS ORDERED: NS 1,000 ML IV ONE ×2 (08:11→08:17)
[2023-10-11] MEDS ORDERED: Nitroglycerin 2 MG/20 ML BTL ONE (08:11)
[2023-10-11] MEDS ORDERED: Heparin Sodium 1000 Units/ML 10ML MDV ONE (08:11)
[2023-10-11] MEDS ORDERED: Midazolam HCl 1MG / ML 2ML Vial ONE ×2 (08:16→09:11)
[2023-10-11] MEDS ORDERED: FentaNYL Citrate 50 MCG/ML 2 ML Injection ONE ×2 (08:17→09:11)
[2023-10-11] MEDS ORDERED: Verapamil HCL 2.5 MG/ML 2ML Injection ONE (09:08)
--- NOTE | 2023-10-11 10:15 | NUR ---
PT BACK TO RECOVERY ROOM VIA BED AFTER PROCEDURE. SLEEPING, BUT ROUSES EASILY TO VERBAL STIMULI. VSS, CALL LIGHT IN REACH. RIGHT GROIN SITE AND LEFT PT SITE SOFT AND NON-TENDER, NO BLEEDING OR SWELLING.
[2023-10-11 10:20] VITALS: BP 132/68
[2023-10-11 10:30] VITALS: BP 130/68
[2023-10-11 10:45] VITALS: BP 127/62
--- NOTE | 2023-10-11 10:52 | NUR ---
PT GIVEN PO FLUIDS PER REQUEST. 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
[2023-10-11 11:00] VITALS: BP 132/79
--- NOTE | 2023-10-11 11:02 | NUR ---
PT HAS BEEN REPEATEDLY SITTING UP IN BED, AND GETTING OUT OF BED TO GO TO THE BATHROOM, EVEN AFTER MUCH ENCOURAGEMENT FROM STAFF TO STAY IN BED FOR THE SAFETY OF THE RIGHT GROIN SITE. VSS. NO BLEEDING OR SWELLING NOTED AT SITE. PT ASKING TO BE DC'D HOME. DR BLACK NOTIFIED, IS OKAY WITH PT GOING HOME LONG ARTERIAL SITES ARE FINE.
[2023-10-11] MEDS ORDERED: Clopidogrel Bisulfate 75 MG Tab ONE (11:14)
[2023-10-11] MEDS ORDERED: CLOP75 PO (11:27)
--- NOTE | 2023-10-11 11:37 | NUR ---
IV DC'D, CATH INTACT. PT HAS BEEN GIVEN DC INSTRUCTIONS, RX. VERBALIZED UNDERSTANDING. HAS BEEN MEDICATED WITH PLAVIX PRIOR TO DC PER ORDERS. OUT TO CAR VIA WHEELCHAIR, LEFT PT AND RIGHT FEMORAL SITES SOFT AND NON-TENDER.
== END 2023-10-11 11:40 | disposition home or self-care (01) ==
LOC: MHTC 07:00 → SDS 07:00 → MHTC 07:07 → SDS 11:40
DX: I70.223 Atherosclerosis of native arteries of extremities with rest pain, bilateral legs (principal); I10 Essential (primary) hypertension; G47.33 Obstructive sleep apnea (adult) (pediatric); F32.9 Major depressive disorder, single episode, unspecified; F17.210 Nicotine dependence, cigarettes, uncomplicated; Z79.899 Other long term (current) drug therapy; Z86.73 Personal history of transient ischemic attack (TIA), and cerebral infarction without residual deficits; Z88.0 Allergy status to penicillin; Z88.2 Allergy status to sulfonamides; Z88.8 Allergy status to other drugs, medicaments and biological substances
CPT/HCPCS: 75625; 75716; 75774; 76937; 99152; 99153; A9270; C1725; C1760; C1769; C1874; C1887; C1894; C9764; C9765; J1644; J2250; J3010; J7030; J7050; Q9967

== ENCOUNTER 2023-11-08 08:32 | Day surgery (SDC) | payer OTHER ==
[2023-11-08] VITALS (9 sets, daily range): BP systolic 89–126; BP diastolic 63–83
[~2023-11-08] VITALS: Ht 177.8 cm; Wt 65.9 kg
[~2023-11-08 08:32] MED LIST changes: +ATOR80 PO; +CLOP75 PO; +IBUP200 PO; +METO50ER PO; +Neurontin300 MG PO
[2023-11-08] MEDS ORDERED: NS 500 ML IV ONE (10:25)
[2023-11-08] MEDS ORDERED: Heparin Sodium 1000 Units/ML 10ML MDV ONE (10:26)
[2023-11-08] MEDS ORDERED: Nitroglycerin 2 MG/20 ML BTL ONE (10:26)
[2023-11-08] MEDS ORDERED: NS 1,000 ML IV ONE ×2 (10:26→10:34)
[2023-11-08] MEDS ORDERED: Midazolam HCl 1MG / ML 2ML Vial ONE ×2 (10:33→11:28)
[2023-11-08] MEDS ORDERED: FentaNYL Citrate 50 MCG/ML 2 ML Injection ONE ×2 (10:34→11:29)
--- NOTE | 2023-11-08 12:20 | NUR ---
PT ARRIVES BACK FROM [employer] AT THIS TIME, ALERT AND ORIENTED, SUPINE IN BED. ANGIOSEAL TO LEFT GROIN. DENIES ANY PAIN AT THIS TIME. PT VSS. PT PROVIDED WITH REFRESHEMENTS AND ASSISTED WHILE LAYING FLAT IN BED.
[2023-11-08] MEDS ORDERED: DiphenhydrAMINE HCl 50 MG/ML 1ML Vial IV ONE (12:35)
[2023-11-08] MEDS ORDERED: DiphenhydrAMINE HCl 50 MG/ML 1ML Vial ONE (12:35)
--- NOTE | 2023-11-08 12:40 | NUR ---
PT RESTLESS IN BED, REPORTS BACK ITCHES, PT NEEDING FREQUENT REMINDER TO KEEP LEGS STRAIGHT AND HEAD DOWN. GROIN SITE REMAINS UNCHANGED FROM PREVIOUS ASSESSMENT DESPITE RESTLESSNESS IN BED. ASSISTED PT MULTIPLE TIMES TO ITCH BACK AND APPLIED LOTION WITH NO RELIEF. PT. REPORTS ITCHING IS NOW ON HIS SIDES. NO RASH/REDNESS OR IRRITATION NOTED TO SKIN. DR. BLACK NOTIFIED AND 12.5MG IV BENADRYL ORDERED AND ADMIN. PT. VSS REMAIN STABLE AND PT REMAINS SUPINE IN BED.
--- NOTE | 2023-11-08 14:00 | NUR ---
PT REPOSTIONED WITH HOB ELEVATED. PT LEFT FEMORAL SITE REMAINS UNCHANGED FROM PREVIOUS ASSESSMENT. PT. VSS REMAIN STABLE. FOOD TRAY PROVIDED. PT REPORTS ITCHING IS MUCH BETTER.
--- NOTE | 2023-11-08 14:56 | NUR ---
PT DISCHARGE INSTRUCTIONS REVIEWED IN DETAIL. CALL TO PT PHARMACY TO MAKE SURE THAT PT PLAVIX WAS ORDERED. PER PHARMACY ([facility]) PT PICKED UP 90 DAY SUPPLY ON THE . PT. REPORTS HE WILL RECHECK HIS MEDICATIONS ONCE HE GETS HOME AND WILL CALL THE OFFICE IF HE NEEDS ANOTHER PRESCRIPTION. PT. VSS UPON DISCHARGE. PT ABLE TO GET SELF DRESSED. PT TAXI CALLED. PT TAKEN TO EXIT VIA WHEELCHAIR. PT HAS FOLLOW UP SCHEDULED. IV REMVOED CATHETER INTACT.
== END 2023-11-08 14:00 | disposition home or self-care (01) ==
LOC: MHTC 08:32
PROC: 047K3ZZ Dilation of Right Femoral Artery, Percutaneous Approach (ICD-10-PCS; principal; 2023-11-08)
DX: I70.223 Atherosclerosis of native arteries of extremities with rest pain, bilateral legs (principal); I87.2 Venous insufficiency (chronic) (peripheral); I83.92 Asymptomatic varicose veins of left lower extremity; I10 Essential (primary) hypertension; G47.33 Obstructive sleep apnea (adult) (pediatric); F17.210 Nicotine dependence, cigarettes, uncomplicated; Z88.0 Allergy status to penicillin; Z88.2 Allergy status to sulfonamides; Z91.048 Other nonmedicinal substance allergy status; Z79.82 Long term (current) use of aspirin; Z79.899 Other long term (current) drug therapy
CPT/HCPCS: 76937; 99152; 99153; C1725; C1760; C1769; C1887; C1894; C2623; J1200; J1644; J2250; J3010; J7030; J7050; Q9967

== ENCOUNTER 2024-02-26 13:51 | Emergency (ER) | payer OTHER ==
[~2024-02-26] VITALS: Ht 177.8 cm; Wt 65.8 kg
[2024-02-26] MEDS ORDERED: LORazepam 1 MG Tab PO ONE (15:30)
[2024-02-26 17:01] VITALS: BP 157/72
== END 2024-02-26 17:02 | disposition home or self-care (01) ==
LOC: ER 13:51
DX: S05.11XA Contusion of eyeball and orbital tissues, right eye, initial encounter (principal); R04.0 Epistaxis; I10 Essential (primary) hypertension; F17.200 Nicotine dependence, unspecified, uncomplicated; W20.8XXA Other cause of strike by thrown, projected or falling object, initial encounter; Z79.1 Long term (current) use of non-steroidal anti-inflammatories (NSAID); Z88.0 Allergy status to penicillin; Z88.2 Allergy status to sulfonamides; Z88.8 Allergy status to other drugs, medicaments and biological substances; Z79.02 Long term (current) use of antithrombotics/antiplatelets; Z79.82 Long term (current) use of aspirin; Z79.899 Other long term (current) drug therapy
CPT/HCPCS: 70450; 99284-25; A9270

== ENCOUNTER 2024-02-29 13:54 | Emergency (ER) | payer OTHER ==
[~2024-02-29] VITALS: Ht 177.8 cm; Wt 65.8 kg
[2024-02-29 15:15] VITALS: BP 136/61
== END 2024-02-29 16:39 | disposition home or self-care (01) ==
LOC: ER 13:54
DX: S01.312A Laceration without foreign body of left ear, initial encounter (principal); Z79.01 Long term (current) use of anticoagulants; W07.XXXA Fall from chair, initial encounter; Z88.0 Allergy status to penicillin; Z88.2 Allergy status to sulfonamides; Z91.048 Other nonmedicinal substance allergy status; I10 Essential (primary) hypertension; F17.210 Nicotine dependence, cigarettes, uncomplicated
CPT/HCPCS: 12011; 70450; 99284-25

== ENCOUNTER 2025-01-02 07:36 | Emergency (ER) | payer OTHER ==
[~2025-01-02] VITALS: Ht 177.8 cm; Wt 62.1 kg
[2025-01-02 08:35] LABS: BASOPHILS ABSOLUTE AUTO 0.04 K/mm3 (0.00-0.23); BASOPHILS PERCENT AUTO 1 % (0-2); EOSINOPHILS ABSOLUTE AUTO 0.03 K/mm3 (0.00-0.68); EOSINOPHILS PERCENT AUTO 1 % (0-6); Hematocrit 30.9 % (37.0-53.0); Hemoglobin 10.8 g/dL (13.5-17.5); IMMATURE GRAN ABSOLUTE AUTO 0.02 K/mm3 (0.00-0.10); IMMATURE GRAN PERCENT AUTO 0 % (0-1); LYMPHOCYTES ABSOLUTE AUTO 1.61 K/mm3 (0.84-5.20); LYMPHOCYTES PERCENT AUTO 26 % (21-46); MONOCYTES ABSOLUTE AUTO 0.62 K/mm3 (0.16-1.47); MONOCYTES PERCENT AUTO 10 % (4-13); Mean Corpuscular Volume 97 fL (80-100); Mean Platelet Volume 8.7 fL (9.1-12.4); NEUTROPHILS ABSOLUTE AUTO 3.86 K/mm3 (1.96-9.15); NEUTROPHILS PERCENT AUTO 63 % (41-73); Platelet Count 294 K/mm3 (150-400); RDW Coefficient Variation 16.7 % (11.7-14.2); RDW Standard Deviation 59.6 fL (35.1-46.3); Red Blood Cell Count 3.18 M/mm3 (4.30-5.90); White Blood Cell Count 6.18 K/mm3 (4.00-11.30)
[2025-01-02] MEDS ORDERED: NS 1,000 ML IV SCH (08:45)
[2025-01-02 09:07] LABS: Albumin, Blood 2.4 g/dL (3.4-5.0); Albumin/Globulin Ratio 0.9 (0.8-1.8); Bilirubin, Total 0.4 mg/dL (0.1-1.0); Bun/Creatinine Ratio 7.6 (12.0-20.0); Calcium, Blood 7.8 mg/dL (8.5-10.1); Creatinine, Blood 0.53 mg/dL (0.60-1.20); Globulin, Blood 2.7 g/dL (2.2-4.0); Potassium, Blood 3.8 mmol/L (3.5-5.5); Total Protein, Blood 5.1 g/dL (6.4-8.2)
[2025-01-02 12:00] VITALS: BP 99/62
== END 2025-01-02 13:17 | disposition home or self-care (01) ==
LOC: ER 07:36
PROVIDERS: Student in an Organized Health Care Education/Training Program
DX: S00.83XA Contusion of other part of head, initial encounter (principal); R04.0 Epistaxis; F10.129 Alcohol abuse with intoxication, unspecified; E87.1 Hypo-osmolality and hyponatremia; D64.9 Anemia, unspecified; F17.210 Nicotine dependence, cigarettes, uncomplicated; I10 Essential (primary) hypertension; W18.11XA Fall from or off toilet without subsequent striking against object, initial encounter; Z79.02 Long term (current) use of antithrombotics/antiplatelets; Z79.82 Long term (current) use of aspirin; Z79.899 Other long term (current) drug therapy; Z88.0 Allergy status to penicillin; Z88.2 Allergy status to sulfonamides; Z91.048 Other nonmedicinal substance allergy status
CPT/HCPCS: 70450; 80053; 80320; 83735; 83880; 84484; 85025; 93005; 93010; 99284-25; J7030